=== PATIENT | male | born 1960 | race Caucasian/White ===

== ENCOUNTER 2021-01-05 16:36 | Emergency (ER) | payer OTHER ==
[2021-01-05] MEDS ORDERED: Lidocaine 1% 10 ML MDV INJECT ONE (17:11)
--- NOTE | 2021-01-05 17:22 | EDM.PDOC ---
ED HPI GENERAL MEDICAL PROBLEM - General Chief Complaint: Laceration Stated Complaint: FINGER LAC Time Seen by Provider: 01/05/21 16:44 Source of Information: Reports: Patient History Limitations: Reports: No Limitations - History of Present Illness INITIAL COMMENTS - FREE TEXT/NARRATIVE: 60-year-old male presents the emergency department with a right fifth finger injury. Patient states that around 230 today his right fifth finger was crushed by a 155 pound pin at work today. He was sent to the occupational med clinic initially and they sent him here to the emergency department for further evaluation. The wound was cleaned at occupational medicine the patient did receive his Tdap however they felt he needed an x-ray. Right Finger-Little Pain Score (Numeric/FACES): 4 - Related Data Allergies Allergy/AdvReac Type Severity Reaction Status Date / Time No Known Allergies Allergy Verified 01/05/21 16:45 Home Meds: Home Meds Hydrocodone/Acetaminophen [HYDROcodone-Acetaminophen 5-325 MG] 1 each PO Q6H PRN #10 tab 01/05/21 [Rx] cephALEXin [Keflex] 500 mg PO QID #40 cap 01/05/21 [Rx] Past Medical History Musculoskeletal History: Reports: Arthritis Endocrine/Metabolic History: Reports: Obesity/BMI 30+ - Past Surgical History Musculoskeletal Surgical History: Reports: Arthroscopic Knee Social & Family History - Tobacco Use Tobacco Use Status *Q: Never Tobacco User - Caffeine Use Caffeine Use: Reports: Coffee - Recreational Drug Use Recreational Drug Use: No ED ROS GENERAL - Review of Systems Review Of Systems: Comprehensive ROS is negative, except as noted in HPI. ED EXAM, SKIN/RASH Exam: See Below Exam Limited By: No Limitations General Appearance: Alert, WD/WN, Mild Distress Ears: Normal External Exam, Hearing Grossly Normal Nose: Normal Inspection Throat/Mouth: Normal Inspection, Normal Lips, Normal Voice, No Airway Compromise Head: Atraumatic Neck: Normal Inspection, Supple Respiratory/Chest: No Respiratory Distress, No Accessory Muscle Use Cardiovascular: Normal Peripheral Pulses, Regular Rate, Rhythm GI/Abdominal: No Distention (Male) Exam: Deferred Rectal (Males) Exam: Deferred Back Exam: Normal Inspection Extremities: Normal Range of Motion. No: Normal Inspection (crush injury to left fifth digit), Non-Tender (tenderness to left fifth digit) Neurological: Alert, Oriented, Normal Cognition Psychiatric: Normal Affect Skin: Warm, Dry, Normal Color, No Rash. No: Intact (laceration noted to left fifth digit) Location, Skin: Upper Extremity, Left Associated features: Tenderness Lymphatic: No Adenopathy ED SKIN PROCEDURES - Laceration/Wound Repair Right Digit - 5th (Baby) Appearance: Superficial Distal NVT: Neuro & Vascular Intact Anesthetic Type: Digital Local Anesthesia - Lidocaine (Xylocaine): 1% Plain Local Anesthetic Volume: 4cc Closed with: Sutures Lac/Wound length In cm: 1.5 Suture Size: 4-0 # of Sutures: 4 Suture Type: Nylon, Interrupted Course - Vital Signs Text/Narrative:: Upon evaluation, the patient does have a laceration noted on the palmar aspect of the right fifth digit midway up laterally to the nailbed. Nailbed is still in place. I have ordered an x-ray of the right fifth digit. Pt is able to still move the digit and cms is positive. Last Recorded V/S: Last Vital Signs Temp 97.1 F 01/05/21 16:42 Pulse 89 01/05/21 16:42 Resp 18 01/05/21 16:42 BP 180/97 H 01/05/21 16:42 Pulse Ox 96 01/05/21 16:42 - Orders/Labs/Meds Orders: Active Orders 24 hr Category Date Time Status Fingers Fifth Digit Rt F9 [CR] Stat Exams 01/05/21 16:49 Taken Meds: Medications Discontinued Medications Generic Name Dose Route Start Last Admin Trade Name Froilanq PRN Reason Stop Dose Admin Lidocaine HCl 10 ml 01/05/21 17:11 01/05/21 17:19 Lidocaine 1% 10 Ml Mdv INJECT 01/05/21 17:12 10 ml ONETIME ONE Administration - Re-Assessments/Exams Free Text/Narrative Re-Assessment/Exam: 01/05/21 17:19 Xray of left fifth digit reveal a fracture of the left fifth distal phalanx. I have ordered lidocaine 1mg and will do a digital block and suture the area. 01/05/21 18:30 Wound was prepped in a sterile field and repaired. Departure - Departure Time of Disposition: 18:25 Disposition: Home, Self-Care 01 Condition: Good Clinical Impression: Open fracture of finger, distal phalanx Qualifiers: Encounter type: initial encounter Finger: little finger Fracture alignment: displaced Laterality: right Qualified Code(s): S62.636B - Displaced fracture of distal phalanx of right little finger, initial encounter for open fracture - Discharge Information Prescriptions: Hydrocodone/Acetaminophen [HYDROcodone-Acetaminophen 5-325 MG] 1 each PO Q6H PRN #10 tab PRN Reason: Pain (Moderate 4-6) cephALEXin [Keflex] 500 mg PO QID #40 cap Referrals: PCP,None [Primary Care Provider] - Forms: ED Department Discharge Additional Instructions: You were seen in the emergency department today after crush injury to your right fifth finger. X-ray was completed and there is noted to be a broken bone. Laceration was repaired with sutures. You will need to keep the dressing on for 24 hours. After that time you may wash the wound twice daily with mildly soap such as Dial or Phil's baby shampoo. Pat the wound dry and then apply a thin film of bacitracin and a dressing. Watch for any signs and symptoms of infection such as increased redness, warmth or pus. I have sent a prescription for an antibiotic called Keflex to your pharmacy. You will need to take 1 tablet 4 times daily until gone. This will be a total of 10 days. I have also sent a prescription for narcotic pain medication called Gem to your pharmacy. You may take 1 tab every 6 hours as needed for more severe pain. May take Tylenol 650 mg every 4 hours as needed for lesser pain. Gem contains Tylenol, so use it in place of one of your Tylenol doses so not to consume too much Tylenol in 24 hours. You will need to follow-up with Dr. Forte, orthopedic surgeon at [facility] for evaluation of the fracture. The phone number for his clinic is [phone]. Call first thing tomorrow to schedule an appointment. Sepsis Event Note (ED) - Evaluation Sepsis Screening Result: No Definite Risk - Focused Exam Vital Signs: Vital Signs Temp Pulse Resp BP Pulse Ox 01/05/21 16:42 97.1 F 89 18 180/97 H 96 - My Orders Last 24 Hours: My Active Orders 01/05/21 16:49 Fingers Fifth Digit Rt F9 [CR] Stat - Assessment/Plan Last 24 Hours: My Active Orders 01/05/21 16:49 Fingers Fifth Digit Rt F9 [CR] Stat
--- NOTE | 2021-01-06 10:16 | CR ---
Right fifth finger: 4 views of the right fifth finger were obtained. Comparison: No previous hand or finger study. Slightly comminuted fracture is noted within the tuft of the distal phalanx. Soft tissue swelling is seen within the distal fifth finger. Proximal bony structures show no additional fracture or other abnormality. Mild degenerative change is partially seen within the MCP joint and DIP joint of the fourth finger. Well-corticated bony density is noted off the MCP joint of the third finger compatible with old injury. Impression: 1. Comminuted tuft fracture with soft tissue swelling involving the distal fifth finger. 2. Other findings which appear chronic as noted above. Diagnostic code #3
== END 2021-01-05 18:43 | disposition home or self-care (01) ==
LOC: JD.ED 16:36
DX: S62.636B Displaced fracture of distal phalanx of right little finger, initial encounter for open fracture (principal); E66.9 Obesity, unspecified; Z68.41 Body mass index [BMI] 40.0-44.9, adult; W23.0XXA Caught, crushed, jammed, or pinched between moving objects, initial encounter; Y99.0 Civilian activity done for income or pay
CPT/HCPCS: 12001; 73140-26-F9; 73140-F9; 99282; 99283-25